=== PATIENT | female | born 1980 | race Caucasian/White ===

== ENCOUNTER → 2021-08-07 | Day surgery (SDC) | payer OTHER | END | disposition home or self-care (01) | LOC: FAS 10:01 | DX: N60.31 Fibrosclerosis of right breast (principal); N63.13 Unspecified lump in the right breast, lower outer quadrant; N63.21 Unspecified lump in the left breast, upper outer quadrant; F41.9 Anxiety disorder, unspecified; F32.A Depression, unspecified; K21.9 Gastro-esophageal reflux disease without esophagitis; Z88.0 Allergy status to penicillin; Z79.899 Other long term (current) drug therapy; Z80.3 Family history of malignant neoplasm of breast; Z90.49 Acquired absence of other specified parts of digestive tract; Z90.710 Acquired absence of both cervix and uterus; Z72.89 Other problems related to lifestyle; Z80.0 Family history of malignant neoplasm of digestive organs; Z80.1 Family history of malignant neoplasm of trachea, bronchus and lung ==